=== PATIENT | female | born 1930 | race Caucasian/White ===

== ENCOUNTER 2021-03-22 22:45 | Emergency (ER) | payer MEDICARE ==
[~2021-03-22] VITALS: Ht 152.4 cm; Wt 60.8 kg
--- NOTE | 2021-03-22 22:47 | NUR ---
MD Mc Childs in room to do MSE.
[2021-03-22] MEDS ORDERED: NITROGLYCERIN OINT 1 GM PACKET TP ONE ×2 (23:00→23:09)
[2021-03-22] MEDS ORDERED: FUROSEMIDE 20 MG/2 ML VIAL IVP ONE (23:00)
--- NOTE | 2021-03-22 23:00 | NUR ---
technical support intern at bedside to draw labs.
[2021-03-22 23:10] LABS: HEMATOCRIT 31.7 % (31.2-41.9); PLATELET COUNT (AUTO) 180 K/uL (179-408)
[2021-03-22] MEDS ORDERED: FUROSEMIDE 20 MG/2 ML VIAL ONE (23:10)
[2021-03-22 23:20] LABS: CARBON DIOXIDE 24 mmol/L (21-32); CHLORIDE 101 mmol/L (98-107); CREATININE 1.4 mg/dL (0.6-1.3); GLUCOSE 161 mg/dL (74-106); POTASSIUM 3.9 mmol/L (3.5-5.1); UREA NITROGEN, BLOOD 43 mg/dL (7-18)
[2021-03-22 23:32] LABS: ALANINE AMINOTRANSFERASE 66 U/L (14-59); ALKALINE PHOSPHATASE 114 U/L (50-136); ASPARTATE AMINOTRANSFERASE 131 U/L (15-37); BILIRUBIN,DIRECT 0.1 mg/dL (0.0-0.2); BILIRUBIN,TOTAL 0.4 mg/dL (0.2-1.0); TOTAL PROTEIN, SERUM 7.1 g/dL (6.4-8.2)
--- NOTE | 2021-03-22 23:36 | NUR ---
Paged patient's aircraft load controller Luis Soria . Waiting for call back.
--- NOTE | 2021-03-22 23:42 | NUR ---
Dr Childs spoke to Dr Paulino physicist acoustics furniture lumber production worker for Dr Soria.
--- NOTE | 2021-03-22 23:59 | NUR ---
Dr Childs spoke with Dr Garcia, human resource analyst informatics physician liaison who requested patient to be transfer to [facility] for photo lab specialist in AM
--- NOTE | 2021-03-23 00:01 | NUR ---
Kati betancourt in [facility] - 03/23/21 at 0003 by [facility] panel call placed, pending call back from hospitalist.
--- NOTE | 2021-03-23 00:03 | NUR ---
EPIC panel call placed, pending call back from hospitalist Brianna.
[2021-03-23] MEDS ORDERED: ASPIRIN 81 MG TAB.CHEW ONE (00:12)
[2021-03-23] MEDS ORDERED: ASPIRIN 81 MG TAB.CHEW PO ONE (00:15)
--- NOTE | 2021-03-23 00:28 | NUR ---
Called [facility], connected to MD Mc Childs.
[2021-03-23] MEDS ORDERED: HYDR-4077 PO (00:33)
[2021-03-23] MEDS ORDERED: METO-357 PO (00:33)
[2021-03-23] MEDS ORDERED: BRIM5DRO2 EACHEYE (00:33)
[2021-03-23] MEDS ORDERED: HYDR12.55 PO (00:33)
[2021-03-23] MEDS ORDERED: RIVA20TA PO (00:33)
[2021-03-23] MEDS ORDERED: LEVO50TA8 PO (00:33)
[2021-03-23] MEDS ORDERED: FLEC100T2 PO (00:33)
[2021-03-23] MEDS ORDERED: VALS160T2 PO (00:33)
[2021-03-23] MEDS ORDERED: ATOR20TA PO (00:33)
[2021-03-23] MEDS ORDERED: CLON0.1T PO (00:33)
[2021-03-23] MEDS ORDERED: HEPARIN SODIUM,PORCINE 5,000 UNITS/ML VIAL IV ONE (00:45)
[2021-03-23] MEDS ORDERED: HEPARIN/D5W DRIP 500 ML IV PRN (00:45)
--- NOTE | 2021-03-23 00:59 | NUR ---
Called [facility], no units ALS available until after 0700.
[2021-03-23] MEDS ORDERED: HEPARIN/D5W DRIP 500 ML ONE (01:14)
[2021-03-23] MEDS ORDERED: HEPARIN SODIUM,PORCINE 5,000 UNITS/ML VIAL ONE (01:14)
--- NOTE | 2021-03-23 01:20 | NUR ---
Patient given 4,000 unit heparin bolus per MD Mc Childs, and started on 913 unit/hr per heparin drip protocol. Patient will require redraw of PTT in 6 hours at 07:20am.
--- NOTE | 2021-03-23 01:46 | NUR ---
[facility] called, ALS unit ETA 30-45 minutes.
--- NOTE | 2021-03-23 01:54 | NUR ---
Report given to JAYLEEN Joyce at [facility].
[2021-03-23 02:15] VITALS: BP 173/89
[2021-03-23] MEDS ORDERED: NITROGLYCERIN 0.4 MG/TAB BOTTLE SL ONE ×2 (02:15→02:24)
--- NOTE | 2021-03-23 02:29 | NUR ---
[facility] arrived, took report on the patient, paperwork given, and patient is being prepared for transport.
--- NOTE | 2021-03-23 02:31 | NUR ---
Patient Transfers to outside Facility Physician: Brianna Location: [facility] 259.
== END 2021-03-23 02:31 | disposition short-term general hospital (02) ==
LOC: ER 22:47
DX: I21.4 Non-ST elevation (NSTEMI) myocardial infarction (principal); J81.0 Acute pulmonary edema; Z91.041 Radiographic dye allergy status; Z20.822 Contact with and (suspected) exposure to COVID-19; Z95.0 Presence of cardiac pacemaker; R94.31 Abnormal electrocardiogram [ECG] [EKG]; E78.5 Hyperlipidemia, unspecified; E03.9 Hypothyroidism, unspecified
CPT/HCPCS: 36415; 71045; 80048; 80076; 83880; 84484; 85025; 85730; 87426; 93005; 96365; 96375; 99291; J1644 ×2; J1940; 70030-TC